=== PATIENT | female | born 1995 | race Hispanic/Latino ===

== ENCOUNTER 2016-06-29 11:00 | Emergency (ER) | payer OTHER ==
[~2016-06-29] VITALS: Ht 162.6 cm; Wt 70.0 kg
[2016-06-29 11:02] VITALS: BP 120/71; PULSE 73; RESP 20; O2SAT 99
--- NOTE | 2016-06-29 11:15 | ED.REPORT ---
HPI-Back Pain Under 40 Date of Service Jun 29, 2016 ED Provider: Dontae Arnett MD Pt is a 20 year old female with a hx of kidney stones and a temporary ureter stent (1 week) presenting to the ED complaining of 10/10 sharp right sided flank pain onset last night, worsened when she woke up this morning. Associated symptoms include dysuria, hematuria, urinary urgency. Denies fever, vomiting, chills, increased urinary frequency, vaginal bleeding or discharge. She reports that these symptoms feel similar to her pervious kidney stones. Nursing Notes Stated Complaint: RIGHT SIDE BACK PAIN Chief Complaint: Back Pain or Injury Nursing Notes Reviewed: Yes Allergies: Coded Allergies: No Known Allergies (Unverified , 06/29/16) Scheduled Ciprofloxacin (Ciprofloxacin) 500 Mg Tablet 500 MG PO BID Tamsulosin (Flomax) 0.4 Mg Capsule 0.4 MG PO DAILY General Time Seen by MD: 11:10 Chief Complaint Flank pain right Hx Obtained From: Patient Arrived By: Walk-in Sudden in Onset?: No Onset Occurred: Yesterday Symptom Duration: Since onset Caused by: Spontaneous/no mechanism Location: : Flank right Quality: Painful Severity: Current: Pain level 10 out of 10 Severity: Maximum: Severe Recent Healthcare: No recent doctor visit, No recent hospitalization Similar Sx Previous: Yes Past Medical History Past Medical History Hx kidney stones x2 in 2013 (was admitted for infection following stent placement) PCOS Past Surgical History Hx ureter stent for 1 week in 2013 for stones to pass Smoking History Unknown if Ever Smoker Ambulatory Status Independent Review of Systems Constitutional: Denies: Chills, Fever GI: Denies: Nausea, Vomiting Female: Reports: Dysuria, Flank pain, Hematuria, Urinary urgency, Denies: Urinary frequency, Vaginal bleeding - abnl, Vaginal discharge Complete sys rev & neg: except as marked. Physical Exam Initial Vital Signs Vital Signs (First) Date Time Temp Pulse Resp B/P Pulse Ox O2 Delivery O2 Flow Rate FiO2 06/29/16 11:02 36.4 73 20 120/71 99 Room Air Initial VS: Reviewed Head / Eyes: Atraumatic, Normocephalic, PERRL ENT: Mucous membranes moist, Conjunctiva normal, No scleral icterus Cardiovascular: Heart sounds normal, Intact distal pulses Abdomen / GI: Soft, Non-tender, No guarding, No rebound, No distention Extremities: Vascular intact, Neuro intact, No swelling, No tenderness Skin: Warm, Dry, No cyanosis Psychiatric: Mood/affect normal, Behavior normal, Normal thought content General/Constitutional: Awake, Alert Distress / Hydration: Positive: Distress moderate Back: Atraumatic, Inspection NL Right CVA tenderness Respiratory / Chest: Atraumatic, Breath sounds NL, Breath sounds = bilat, No respiratory distress Tachypnic Interpretation & Diagnostics Interpretation & Diagnostics: CT KUB: IMPRESSION: 1. Suspect a recently passed renal stone within the bladder. Bilateral punctate renal calculi are present. 2. Mild right renal pelviectasis. Dictated by: Kwan Jefferson M.D. on 06/29/2016 at 13:16 Lab Results Interpretation Result Diagram: 06/29/16 1118 06/29/16 1118 Test 06/29/16 11:18 06/29/16 13:25 White Blood Count 7.3th/mm3 (3.8-10.1) Red Blood Count 4.49mil/mm3 (3.90-5.20) Hemoglobin 13.2g/dL (12.0-15.6) Hematocrit 39.1% (35.0-46.0) Mean Corpuscular Volume 87.1fL (81-100) Mean Corpuscular Hemoglobin 29.4pg (27.0-35.0) Mean Corpuscular Hemoglobin Concent 33.8% (32.0-37.0) Red Cell Distribution Width 12.3% (12.3-15.4) Platelet Count 262bil/L (150-400) Neutrophils (%) (Auto) 34.4% (40-74) Lymphocytes (%) (Auto) 50.9% (14-46) Monocytes (%) (Auto) 7.7% (4-12) Eosinophils (%) (Auto) 6.3% (0-5) Basophils (%) (Auto) 0.6% (0-3) Sodium Level 139mEq/L (134-144) Potassium Level 3.5mEq/L (3.5-5.2) Chloride Level 100mEq/L (97-108) Carbon Dioxide Level 22mmol/L (18-29) Blood Urea Nitrogen 10mg/dL (6-20) Creatinine 0.78mg/dL (0.57-1.00) Estimat Glomerular Filtration Rate 132mL/min (>59) Glucose Level 104mg/dL (60-99) Calcium Level 9.7mg/dL (8.5-10.1) Magnesium Level 2.0mg/dL (1.6-2.6) Total Bilirubin 0.6mg/dL (0.0-1.2) Aspartate Amino Transf (AST/SGOT) 16U/L (0-50) Alanine Aminotransferase (ALT/SGPT) 13U/L (0-32) Alkaline Phosphatase 54U/L (25-150) Total Protein 7.8g/dL (6.4-8.4) Albumin 4.8g/dL (3.4-5.0) Lipase 44U/L (13-60) Hold Ye Top Tube Received (Received) Lactic Acid Level 0.8mmol/L (0.4-2.0) Lab Results Interpretation: Urine negative. Re-Eval/Medical Decision Med Decision/Clinical Course 20-year-old female history of kidney stones presenting complaining of right flank pain since last night. She had right CVA tenderness on initial exam. She was given 1 dose of Toradol and this resolved. Her pain completely resolved. Urine positive leukocytes positive blood. Lactate was greater than [address] abdomen and pelvis with no hydronephrosis, small stone in bladder. Also with some small stones left kidney. No obstructing stones. No signs pyelonephritis. Her lactate came down to 0.8 with 1 L normal saline. Symptoms resolved throughout her time in her care. Given CT findings, suspect that she had a right kidney stone that passed what she was here. She does have some signs of possible UTI. Patient was given one dose of Rocephin here. She will be treated with ciprofloxacin 10 days. She will be placed on Flomax. She is advised to follow-up with the primary doctor on Friday. Advised to return sooner if any sign symptoms worsening back pain, abdominal pain, fevers, nausea vomiting, any other new or worsening symptoms. Re-Evaluation/Progress #1: Time of Eval: 12:02 Patient Status: Condition improved Re-Evaluation/Progress Note: Discussed elevated lactate and plan for CT scan instead of an ultrasound. Re-Evaluation/Progress #2: Time of Eval: 13:34 Patient Status: Condition improved Re-Evaluation/Progress Note: Discussed plan for discharge. Pt understands and agrees with plan. All pt questions addressed. Counseled Regarding: Diagnosis, Lab results, Need for follow-up, When/why to return to ED Discharge & Departure Impression: Primary Impression: Kidney stone Additional Impressions: Nephrolithiasis UTI (urinary tract infection) Urinary tract infection type: site unspecified Disposition: Home All VS Reviewed: Yes Condition: Improved Additional Instructions: You have a kidney stone that has been passed, so it is now in your bladder. You also have a urinary tract infection. I recommend you go on Flomax to help the few remaining stones in your kidney to pass. Take Ciprofloxacin as prescribed for 7 days. See your primary care doctor on Friday or Friday. If you have any new or worsening symptoms such as fever or vomiting, return to the ER. Referrals: [facility] Scribelizabeth Attestation Portions of this note were transcribed by Stephanie. I, Dr. Arnett personally performed the history, physical exam and medical decision-making; I reviewed and confirmed the accuracy of the information in the transcribed note. Signed by: Carolyne Dale, 06/29/2016 and 1402. copies to: [facility] Dontae Arnett MD Jun 29, 2016 11:15 STEPHANIE EDWARD Jun 29, 2016 11:24
[2016-06-29] MEDS ORDERED: 0.9% Sodium Chloride 1,000 ML IV ONE ×2 (11:23→12:45)
[2016-06-29] MEDS ORDERED: Ondansetron 2 mg/mL 2 mL Inj IVPUSH PRN (11:25)
[2016-06-29 11:33] LABS: BASOPHILS % (AUTO) 0.6 % (0-3); EOSINOPHILS % (AUTO) 6.3 % (0-5); MONOCYTES % (AUTO) 7.7 % (4-12); Mean Corpuscular Hemoglobin 29.4 pg (27.0-35.0); Mean Corpuscular Volume 87.1 fL (81-100); NEUTROPHILS % (AUTO) 34.4 % (40-74); Platelet Count 262 bil/L (150-400)
--- NOTE | 2016-06-29 13:22 | DRSVH ---
PROCEDURE: CT KUB ([id number]) INDICATIONS: Right posterior ethmoid pain and tenderness. History of renal stones. TECHNIQUE: Noncontrast 5 mm thick sections acquired from the diaphragms to the symphysis. 5 mm thick coronal an d sagittal reformats were then performed. For radiation dose reduction, the following was used: aut omated exposure control, adjustment of mA and/or kV according to patient size. COMPARISON: None. FINDINGS: Image quality: Excellent. Lung bases: Lung bases are clear. Heart size is normal. Urinary system: There are tiny punctate calculi in kidneys bilaterally consistent with small stones. There is mild right pelviectasis. Both kidneys are normal in size. No kidney stones. No hydronephr osis or perinephric fat stranding. Both ureters appear non-dilated throughout their expected courses . A 2 mm stone is present within the dependent urinary bladder lumen compatible with a recently pass ed stone. Other solid organs: Liver and spleen are normal in size. Gallbladder is normal. Pancreas is normal in contours. No adrenal nodules. Peritoneum and bowel: Unenhanced bowel loops demonstrate normal wall thickness and caliber. No free fluid or air. Nodes and vessels: No retroperitoneal or mesenteric adenopathy by size criteria. Aorta and inferior vena cava are normal in caliber. Abdominal wall: No ventral hernias. Pelvis: No free pelvic fluid. No inguinal hernias or adenopathy. Bones: No suspicious bony lesions. No vertebral body compression fractures. IMPRESSION: 1. Suspect a recently passed renal stone within the bladder. Bilateral punctate renal calculi are pre sent. 2. Mild right renal pelviectasis. Dictated by: Kwan Jefferson M.D. on 06/29/2016 at 13:16 Approved by: Kwan Jefferson M.D. on 06/29/2016 at 13:21
[2016-06-29 13:33] VITALS: BP 108/45; PULSE 58; O2SAT 94
[2016-06-29] MEDS ORDERED: cefTRIAXone Inj 1,000 MG, Lidocaine PF 1% Inj 2.1 ML in Syringe 0 EACH IM ONE (13:40)
[2016-06-29] MEDS ORDERED: TAMS0.4C98 PO (13:59)
[2016-06-29] MEDS ORDERED: CIPR-198 PO (13:59)
[2016-06-29] MEDS ORDERED: cefTRIAXone Inj 1,000 MG in Dextrose 5% Minibag Plus 50 ML IV ONE (14:00)
[2016-06-29 14:47] VITALS: BP 105/48; PULSE 59; O2SAT 99
== END 2016-06-29 14:48 | disposition home or self-care (01) ==
LOC: SED 11:00
DX: N20.0 Calculus of kidney (principal); N39.0 Urinary tract infection, site not specified; Z98.890 Other specified postprocedural states
CPT/HCPCS: 36415; 74176; 80053; 81025; 83605; 83690; 83735; 85025; 96361; 96365; 96375; 99285; J0696; J2270; J2405; J7030